=== PATIENT | female | born 1985 | race Caucasian/White ===

== ENCOUNTER 2017-02-19 09:55 | Emergency (ER) | payer OTHER ==
--- NOTE | 2017-02-19 10:00 | PDOC ---
History of Present Illness - General Chief Complaint: Chest Pain Stated Complaint: CHEST PAIN Time Seen by Provider: 02/19/17 09:58 - History of Present Illness Initial Comments: 02/19/17 10:36 Chief complaint: Chest pain History of present illness: Patient complains of left chest pain, along the lower sternum, for several days. This occurred after she got a vigorous massage. The pain is worse with deep inspiration and movement of the torso in the arm. The pain is aggravated by palpation over the area. Has been no associated nausea, diaphoresis, radiation of pain to the jaw or arm, lightheadedness or dizziness. Review of systems: As above. Otherwise negative Past medical history: Healthy female, no high blood pressure, diabetes, smoking , drugs, excessive alcohol, Social history: Reviewed and noncontributory Family history: Mother with valvular heart disease in her 60s had a valve replacement. Otherwise, no cardiac disease including coronary artery disease, early MIs, CVA, peripheral vascular disease, or high cholesterol. Physical exam: Alert and oriented 3, well-developed well-nourished, no acute distress. Cheerful and cooperative Afebrile, vital signs normal PERRLA, fundi benign, ENT clear Neck supple without bruit mass or nodes Lungs clear with full breath sounds throughout bilaterally. No splinting on inspiration. No tachypnea or dyspnea Examination of the chest shows point tenderness over the parasternal cartilages , left lower sternal border, without deformity or crepitus. This reproduces the patient's pain. Pain is also aggravated by vigorous arm movement CV S1 and S2 normal without murmur rub or gallop pulses full and symmetric no JVD or edema no bruits Abdomen benign Neurological intact EKG: Normal sinus rhythm 90 per minute. Normal axes and intervals. No ST-T wave changes. Normal Impression: Acute costochondritis. No suggestion of acute coronary syndrome or other cardiac disease. No suggestion of pulmonary disease. Plan: Reassure symptomatic treatment and follow-up if no improvement. Past History - Past Medical History Allergies/Adverse Reactions: Allergies Allergy/AdvReac Type Severity Reaction Status Date / Time No Known Allergies Allergy Verified 02/19/17 09:59 Home Medications: Ambulatory Orders NK [No Known Home Medication] 02/19/17 - Psycho/Social/Smoking Cessation Hx Anxiety: No Suicidal Ideation: No Smoking History: Never smoked Have you smoked in the past 12 months: No Number of Cigarettes Smoked Daily: 0 Hx Alcohol Use: Yes (occasional) Drug/Substance Use Hx: No *Physical Exam - Vital Signs Last Vital Signs Temp Pulse Resp BP Pulse Ox 98.2 F 94 H 18 115/81 100 02/19/17 09:55 02/19/17 09:55 02/19/17 09:55 02/19/17 09:55 02/19/17 09:55 *DC/Admit/Observation/Transfer Diagnosis at time of Disposition: Acute costochondritis - Discharge Dispostion Disposition: HOME Condition at time of disposition: Stable Admit: No - Patient Instructions Printed Discharge Instructions: DI for Costochondritis Additional Instructions: Avoid heavy work with upper body including carrying heavy bags, lifting, or reaching. Ice may be helpful, as well as Motrin or Aleve if the pain flares up See her primary physician if the pain persists more than 1-2 weeks, worsens in intensity, or other symptoms develop
[2017-02-19 10:07] VITALS: BP 115/81; PULSE 94; TEMP 98.2; BMI 35.3
--- NOTE | 2017-02-22 12:25 | EKG ---
Test Reason : Blood Pressure : / mmHG Vent. Rate : 090 BPM Atrial Rate : 090 BPM P-R Int : 114 ms QRS Dur : 076 ms QT Int : 352 ms P-R-T Axes : 043 029 023 degrees QTc Int : 430 ms NORMAL SINUS RHYTHM NORMAL ECG WHEN COMPARED WITH ECG OF 23-MAY-2014 01:16, NO SIGNIFICANT CHANGE WAS FOUND Confirmed by ORLANDO GOODWIN MD ([id number]) on 02/22/2017 12:25:20 PM Referred By: GEORGE SWAIN Confirmed By:ORLANDO GOODWIN MD
== END 2017-02-19 10:41 | disposition home or self-care (01) ==
LOC: FER 09:55
DX: M94.0 Chondrocostal junction syndrome [Tietze] (principal)
CPT/HCPCS: 93005; 99284-25

== ENCOUNTER 2018-12-16 00:45 | Emergency (ER) | payer OTHER ==
[2018-12-16 01:04] VITALS: BP 133/92; PULSE 80; TEMP 98.2; BMI 35.3
[2018-12-16] MEDS ORDERED: MAG HYDROX/AL HYDROX/SIMETH 30 ML UNIT-DOSE CUP PO ONE (01:10)
[2018-12-16] MEDS ORDERED: MAG HYDROX/AL HYDROX/SIMETH 30 ML UNIT-DOSE CUP ONE (01:11)
--- NOTE | 2018-12-16 01:11 | PDOC ---
History of Present Illness - General Chief Complaint: Pain Stated Complaint: EPIGASTRIC PAIN/NAUSEA Time Seen by Provider: 12/16/18 01:06 History Source: Patient Exam Limitations: No Limitations - History of Present Illness Initial Comments: 12/16/18 01:11 This is a 33-year-old female who comes in complaining of epigastric abdominal pain. Patient said it was worse earlier but has resolved now. Patient denies any nausea vomiting or diarrhea with it. Patient said that she had some burning on urination and thought she might have a urinary tract infection. Patient also said she had some chills. She denied any chest pain, cough, congestion or shortness of breath. Allergies: None Past Medical History: none Social history: Lives with family. No smoking. No alcohol. No illicit drugs. Surgical history: None General: No fevers or chills, no weakness, no weight loss HEENT: No change in vision. No sore throat,. No ear pain CardioVascular: no chest discomfort. No shortness of breath Respiratory:No cough, or wheezing. Gastrointestinal: no nausea, vomiting, diarrhea or constipation, No rectal bleeding, +abdominal pain Genitourinary: No dysuria, hematuria, or frequency Musculoskeletal: No joint or muscle pain or swelling Neurologic: No headache, vertigo, dizziness or loss of consciousness Psychiatric: nor depression Skin: No rashes or easy bruising Endocrine: no increased thirst or abnormal weight change Allergic: no skin or latex allergy All other systems reviewed and normal Exam: General: Well-nourished well-developed individual, no acute distress HEENT: Throat: Normal, tonsils normal, no erythema or exudate Neck: Supple, no meningeal signs, no lymphadenopathy Eyes::Pupils equal reactive and round, extraocular motion intact Chest: Nontender to palpation Cardiac: S1-S2 normal, regular rate and rhythm, no murmurs rubs or gallops Respiratory: Lungs clear to auscultation bilateral Abdomen: Soft, nondistended, normal bowel sounds, there is no tenderness on palpation diffusely Extremities: Warm, dry, no cyanosis, clubbing, or edema Skin: No rashes Neuro: Alert and oriented x3, CN II - XII intact, nonfocal exam with normal strength, normal sensation, normal reflexes, normal gait, Psych: Normal mood and affect Past History - Past Medical History Allergies/Adverse Reactions: Allergies Allergy/AdvReac Type Severity Reaction Status Date / Time No Known Allergies Allergy Verified 02/19/17 09:59 Home Medications: Ambulatory Orders NK [No Known Home Medication] 02/19/17 COPD: No - Suicide/Smoking/Psychosocial Hx Smoking History: Never smoked Have you smoked in the past 12 months: No Number of Cigarettes Smoked Daily: 0 Hx Alcohol Use: Yes (occasional) Drug/Substance Use Hx: No *Physical Exam - Vital Signs Last Vital Signs Temp Pulse Resp BP Pulse Ox 98.2 F 80 16 133/92 99 12/16/18 00:49 12/16/18 00:49 12/16/18 00:49 12/16/18 00:49 12/16/18 00:49 Moderate Sedation - Procedure Monitoring Vital Signs: Procedure Monitoring Vital Signs Temperature 98.2 F 12/16/18 00:49 Pulse Rate 80 12/16/18 00:49 Respiratory Rate 16 12/16/18 00:49 Blood Pressure 133/92 12/16/18 00:49 O2 Sat by Pulse Oximetry (%) 99 12/16/18 00:49 *DC/Admit/Observation/Transfer Diagnosis at time of Disposition: Epigastric pain - Discharge Dispostion Disposition: HOME Condition at time of disposition: Stable Decision to Admit order: No - Referrals Referrals: Marvin Estevez MD [Primary Care Provider] - - Patient Instructions Additional Instructions: Keep your appointment with your doctor for this morning. Return to the emergency department immediately with ANY new, persistent or worsening symptoms. Continue any medications as previously prescribed by your physician. You should follow up with your primary doctor as soon as possible regarding today's emergency department visit. . Please make sure your doctor reviews the results of your emergency evaluation. Thank you for coming to the Emergency Department today for your care. It was a pleasure to see you today. Please note that your evaluation is INCOMPLETE until you follow-up with your doctor. - Post Discharge Activity
[2018-12-16 02:58] LABS: URINE APPEARANCE CLEAR; URINE BILIRUBIN NEGATIVE (<2.0 mg/dL); URINE COLOR STRAW; URINE GLUCOSE (UA) NEGATIVE (NEGATIVE); URINE KETONE NEGATIVE (NEGATIVE); URINE LEUK ESTERASE NEGATIVE (NEGATIVE); URINE NITRITE NEGATIVE (NEGATIVE); URINE PROTEIN NEGATIVE (NEGATIVE); URINE UROBILINOGEN NEGATIVE mg/dL (0.2-1.0)
== END 2018-12-16 03:00 | disposition home or self-care (01) ==
LOC: FER 00:45
DX: R10.13 Epigastric pain (principal)
CPT/HCPCS: 81003; 99282-25

== ENCOUNTER 2021-07-27 16:36 | Emergency (ER) | payer BC, OTHER ==
[2021-07-27 17:10] VITALS: BP 126/84; PULSE 90; TEMP 98.2; BMI 35.2
[2021-07-27] MEDS ORDERED: DIPHTH,PERTUSS(ACELL),TET 0.5 ML DISP.SYRIN IM ONE ×2 (17:14→17:15)
== END 2021-07-27 17:20 | disposition home or self-care (01) ==
LOC: FER 16:36
PROC: 3E0234Z Introduction of Serum, Toxoid and Vaccine into Muscle, Percutaneous Approach (ICD-10-PCS; principal; 2021-07-27)
DX: S61.212A Laceration without foreign body of right middle finger without damage to nail, initial encounter (principal); W26.8XXA Contact with other sharp object(s), not elsewhere classified, initial encounter
CPT/HCPCS: 90715; 99282-25

== ENCOUNTER 2021-07-28 13:50 | Emergency (ER) | payer BC ==
[2021-07-28 14:47] VITALS: BP 112/69; PULSE 80; TEMP 98.5; BMI 35.2
== END 2021-07-28 14:32 | disposition home or self-care (01) ==
LOC: FER 13:50
DX: Z48.00 Encounter for change or removal of nonsurgical wound dressing (principal)
CPT/HCPCS: 99281-25

== ENCOUNTER 2022-04-07 08:49 | Emergency (ER) | payer BC ==
[2022-04-07] MEDS ORDERED: FAMOTIDINE 20 MG/50 ML IVPB 20 MG/50 ML MG IVPB ONE ×2 (09:02→09:23)
[2022-04-07] MEDS ORDERED: SODIUM CHLORIDE 0.9% 500 ML INFUS.BAG IV ONE (09:02)
[2022-04-07] MEDS ORDERED: ACETAMINOPHEN 1000 MG/100 ML BAG IVPB ONE (09:02)
[2022-04-07 09:06] VITALS: TEMP 98.5; BMI 35.3
[2022-04-07] MEDS ORDERED: ACETAMINOPHEN INJECTION 100 ML IVPB ONE (09:23)
[2022-04-07 09:34] LABS: HCG,QUALITATIVE URINE Negative
[2022-04-07 09:36] LABS: HEMATOCRIT 40.3 % (32.4-45.2); HEMOGLOBIN 13.9 G/dL (10.7-15.3); MCH 30.6 pg (25.7-33.7); MCHC 34.4 g/dl (32.0-36.0); MEAN CELL VOLUME 88.9 fl (80-96); MEAN PLT VOLUME 8.2 fl (7.5-11.1); PLATELET COUNT 443.4 10^3/uL (134-434); RBC 4.53 10^6/uL (3.60-5.2); RDW 13.8 % (11.6-15.6); WHITE BLOOD COUNT 6.4 10^3/uL (4.0-10.8)
[2022-04-07 09:44] LABS: ALBUMIN 4.3 g/dl (3.4-5.0); BILIRUBIN,TOTAL 1.5 mg/dl (0.2-1); CALCIUM 9.6 mg/dl (8.5-10); CREATININE 0.7 mg/dl (0.55-1.3); TOT PROT 7.4 g/dl (6.4-8.2)
[2022-04-07 09:55] LABS: EPITHELIAL CELLS MODERATE /hpf
[2022-04-07 11:57] VITALS: BP 112/80; PULSE 80
== END 2022-04-07 12:08 | disposition home or self-care (01) ==
LOC: FER 08:49
PROC: 3E0333Z Introduction of Anti-inflammatory into Peripheral Vein, Percutaneous Approach (ICD-10-PCS; principal; 2022-04-07)
PROC: 3E033GC Introduction of Other Therapeutic Substance into Peripheral Vein, Percutaneous Approach (ICD-10-PCS; 2022-04-07)
DX: R10.13 Epigastric pain (principal); K80.50 Calculus of bile duct without cholangitis or cholecystitis without obstruction; K80.20 Calculus of gallbladder without cholecystitis without obstruction
CPT/HCPCS: 36415; 76705-TC; 80053; 81003; 81015; 83690; 84703; 85025; 87086; 99284-25

== ENCOUNTER 2022-10-27 15:29 | Emergency (ER) | payer BC ==
[2022-10-27 15:45] VITALS: BP 107/80; PULSE 94; RESP 16; TEMP 99.7; BMI 32.9
[2022-10-27] MEDS ORDERED: ACETAMINOPHEN 500 MG TABLET (FP) PO ONE (15:46)
[2022-10-27] MEDS ORDERED: FAMOTIDINE 10 MG TABLET PO ONE (15:46)
[2022-10-27] MEDS ORDERED: MAG HYDROX/AL HYDROX/SIMETH -MYLANTA- ORAL SUSPENSION PO ONE (15:46)
[2022-10-27] MEDS ORDERED: ACETAMINOPHEN 325 MG TABLET (FP) ONE (15:52)
[2022-10-27] MEDS ORDERED: FAMOTIDINE 20 MG TABLET ONE (15:52)
[2022-10-27] MEDS ORDERED: MAG HYDROX/AL HYDROX/SIMETH 30 ML UNIT-DOSE CUP ONE (15:53)
[2022-10-27 16:34] LABS: HEMATOCRIT 35.8 % (32.4-45.2); HEMOGLOBIN 12.4 G/dL (10.7-15.3); MCHC 34.6 g/dl (32.0-36.0); MEAN CELL VOLUME 89.4 fl (80-96); PLATELET COUNT 411.1 10^3/uL (134-434); RDW 13.4 % (11.6-15.6); WHITE BLOOD COUNT 7.5 10^3/uL (4.0-10.8)
[2022-10-27 16:46] LABS: ALBUMIN 4.1 g/dl (3.4-5.0); CALCIUM 9.3 mg/dl (8.5-10); CREATININE 0.7 mg/dl (0.55-1.3); TOT PROT 7.1 g/dl (6.4-8.2)
[2022-10-27 17:37] LABS: PLATELET ESTIMATE ADEQUATE
== END 2022-10-27 17:56 | disposition home or self-care (01) ==
LOC: FER 15:29
DX: K80.21 Calculus of gallbladder without cholecystitis with obstruction (principal)
CPT/HCPCS: 36415; 76705-TC; 80053; 81003; 83690; 83735; 84703; 85027; 87086; 99284-25

== ENCOUNTER 2023-01-17 22:06 | Emergency (ER) | payer BC ==
[2023-01-17 22:12] VITALS: BP 119/78; PULSE 82; RESP 16; TEMP 98.2; BMI 30.2
[2023-01-17] MEDS ORDERED: IBUPROFEN 600 MG TABLET (FP) PO ONE ×2 (22:26→22:28)
== END 2023-01-17 22:36 | disposition home or self-care (01) ==
LOC: FER 22:06
DX: M79.672 Pain in left foot (principal)
CPT/HCPCS: 99282-25

== ENCOUNTER 2024-01-10 16:31 | Emergency (ER) | payer BC | END 2024-01-10 18:56 | disposition home or self-care (01) | LOC: FER 16:31 | DX: R22.42 Localized swelling, mass and lump, left lower limb (principal); M79.662 Pain in left lower leg | CPT/HCPCS: 93971-TC; 99284-25 ==

== ENCOUNTER 2024-01-12 21:07 | Emergency (ER) | payer BC ==
[2024-01-12 21:29] VITALS: BP 135/89; PULSE 86; RESP 16; TEMP 98.2; BMI 33.8
== END 2024-01-12 21:45 | disposition home or self-care (01) ==
LOC: FER 21:07
DX: M79.662 Pain in left lower leg (principal); M79.89 Other specified soft tissue disorders
CPT/HCPCS: 36415; 86618; 99283-25

== ENCOUNTER 2024-03-15 08:21 | Emergency (ER) | payer BC ==
[2024-03-15] MEDS: SODIUM CHLORIDE 0.9% 500 ML INFUS.BAG IV ONE (09:09)
[2024-03-15] MEDS: ACETAMINOPHEN 1000 MG/100 ML BAG IVPB ONE (09:09)
[2024-03-15] MEDS ORDERED: ACETAMINOPHEN INJECTION 100 ML IVPB ONE (09:09)
[2024-03-15 09:19] VITALS: BP 111/77; PULSE 91; RESP 18; TEMP 98.3; BMI 36.1
[2024-03-15 09:20] LABS: HEMATOCRIT 39.2 % (32.4-45.2); MCH 30.4 pg (25.7-33.7); MCHC 33.2 g/dl (32.0-36.0); MEAN CELL VOLUME 91.6 fl (80-96); MEAN PLT VOLUME 8.7 fl (7.5-11.1); PLATELET COUNT 320.7 10^3/uL (134-434); RBC 4.28 10^6/uL (3.60-5.2); RDW 13.2 % (11.6-15.6); WHITE BLOOD COUNT 5.9 10^3/uL (4.0-10.8)
[2024-03-15 09:31] LABS: ALBUMIN 4.4 g/dl (3.4-5.0); BILIRUBIN,TOTAL 1.1 mg/dl (0.2-1); CALCIUM 9.5 mg/dl (8.5-10.1); CREATININE 0.8 mg/dl (0.6-1.3); POTASSIUM 3.9 mmol/L (3.5-5.1); TOT PROT 6.4 g/dl (6.4-8.2)
[2024-03-15 09:36] LABS: PLATELET ESTIMATE ADEQUATE
== END 2024-03-15 10:39 | disposition home or self-care (01) ==
LOC: FER 08:21
PROC: 3E033NZ Introduction of Analgesics, Hypnotics, Sedatives into Peripheral Vein, Percutaneous Approach (ICD-10-PCS; principal; 2024-03-15)
DX: R20.0 Anesthesia of skin (principal); R20.2 Paresthesia of skin; M54.2 Cervicalgia; R53.1 Weakness; G62.9 Polyneuropathy, unspecified
CPT/HCPCS: 36415; 80053; 84703; 85027; 99284-25; J0131

== ENCOUNTER 2024-12-29 00:23 | Emergency (ER) | payer BC ==
[2024-12-29 00:36] VITALS: BP 119/86; PULSE 92; RESP 16; TEMP 97.3; BMI 35.6
[2024-12-29] MEDS ORDERED: IBUPROFEN 600 MG TABLET (FP) PO ONE (00:56)
[2024-12-29] MEDS: IBUPROFEN 600 MG TABLET (FP) PO ONE (00:59)
== END 2024-12-29 01:02 | disposition home or self-care (01) ==
LOC: FER 00:23
DX: S56.911A Strain of unspecified muscles, fascia and tendons at forearm level, right arm, initial encounter (principal); M26.622 Arthralgia of left temporomandibular joint; M79.601 Pain in right arm; R68.84 Jaw pain; X50.1XXA Overexertion from prolonged static or awkward postures, initial encounter
CPT/HCPCS: 93005; 99283-25